=== PATIENT | female | born 1965 | race Caucasian/White ===

== ENCOUNTER → 2017-01-13 | Outpatient (CLI) | payer OTHER ==
--- NOTE | 2017-01-13 16:35 | RADIOLOGY REPORT PS360 ---
FOOT-RT-3 VIEWS HISTORY: RT FOOT PAIN ORDERING PHYSICIAN: Daniel Aggarwal MD PATIENT AGE: 51 years COMPARISON: 10/10/2012 FINDINGS: No fracture or dislocation. No lytic or blastic change. There is normal mineralization.. The joint spaces are well-preserved. No significant degenerative/arthritic changes. No erosive changes evident. There are minimal hypertrophic changes along the anterior aspect of the navicular and there is a small calcaneal spur. IMPRESSION: 1. Minimal degenerative change. 2. No acute finding. 3. No change from 10/10/2012
== END ==
LOC: RAD 16:00
DX: M79.671 Pain in right foot (principal)